=== PATIENT | female | born 1970 | race Caucasian/White ===

== ENCOUNTER 2019-09-28 13:21 | Emergency (ER) | payer SELFPAY ==
[2019-09-28 13:29] VITALS: BP 141/89; PULSE 87; RESP 18; TEMP 37; O2SAT 99; BMI 25.9
--- NOTE | 2019-09-28 13:33 | ED_ITS ---
HPI - Back Pain/Injury General: Chief Complaint: Back Pain/Injury Stated Complaint: back pain Time Seen by Provider: 09/28/19 13:27 History of Present Illness: HPI Narrative: Patient is a 49-year-old female who comes to the ED with back pain. Patient was seen at urgent care on September 16 for similar complaint. She was diagnosed with sciatica it given a dose of prednisone. Patient says now instead of just having the lumbar and sciatica pain she is feeling some more mid back pain. 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 Denies any bladder or bowel incontinence, numbness tingling/weakness down the lower extremities or any pelvic anesthesia. Associated symptoms: Deny abdominal pain, chills, dysuria, fatigue, fever(s), hematuria, nausea or vomiting Review of Systems Const: Denies: fever(s), chills or fatigue Eyes: Denies: change in vision or eye discomfort ENMT: Denies: throat pain, odynophagia, nasal discharge or nasal congestion Card: Denies: chest pain, palpitations, edema, swelling of feet/ankles, dyspnea on exertion or orthopnea Resp: Denies: dyspnea, productive cough or non-productive cough GI: Denies: abdominal pain, nausea, vomiting, diarrhea, constipation or hematochezia : Denies: flank pain, dysuria or hematuria Musc: Reports: back pain; Denies: neck pain or extremity swelling Skin/Breast: Denies: rash or new lesions Neuro: Denies: headache(s), numbness in extremities or weakness in extremities PFS ED PFSH: Social History Smoking and tobacco status: current every day smoker Physical Exam Const: COMMON NORMALS: no acute distress, patient oriented x3, healthy appearing and alert GENERAL APPEARANCE: cooperative HENMT: COMMON NORMALS: normocephalic HEAD & SCALP: normocephalic MOUTH: Normal oral and palatal mucosa present THROAT: posterior oropharynx normal and uvula midline Neck/C-Spine: COMMON NORMALS: supple GENERAL: Yes normal visual inspection Resp: COMMON NORMALS: normal respiratory effort, No retractions, No use of accessory muscles and clear to auscultation bilaterally AUSCULTATION: clear to auscultation bilaterally Cardio: COMMON NORMALS: regular rate, regular rhythm, S1 normal heart sound present, S2 normal heart sound present, No gallops present (Cardio), No clicks present (Cardio), No murmurs present (Cardio) and Peripheral pulses 2+ throughout RATE: regular rate RHYTHM: regular rhythm HEART SOUNDS: S1 normal heart sound present and S2 normal heart sound present PERIPHERAL PULSES: Peripheral pulses 2+ throughout GI: COMMON NORMALS: Normal to inspection, nondistended, normoactive bowel sounds present, Soft to palpation, non-tender and no masses PALPATION: Yes Soft to palpation : COMMON NORMALS: Yes no CVA tenderness BLADDER/KIDNEY EXAM: Yes no CVA tenderness Back/Pelvis: COMMON NORMALS: no CVA tenderness THORACIC SPINE/UPPER BACK: Yes paraspinal muscle tenderness Thoracic paraspinal muscle tenderness: bilateral Bilateral thoracic paraspinal muscle tenderness: T8 and T9 LUMBAR SPINE/LOWER BACK: Yes paraspinal muscle tenderness Extremity: COMMON NORMALS: normal to inspection and no pedal edema Neuro: COMMON NORMALS: patient oriented x3 and moves all extremities SENSORIUM/ORIENTATION: Yes alert Skin: COMMON NORMALS: no rashes or lesions noted GENERAL SKIN EXAM: no rashes or lesions noted and dry skin Course Vital Signs: Vital signs: Vital Signs Temperature 98.6 F 09/28/19 13:29 Pulse Rate 87 09/28/19 13:29 Respiratory Rate 18 09/28/19 13:29 Blood Pressure 141/89 09/28/19 13:29 Pulse Oximetry 99 09/28/19 13:29 MDM - Back Pain/Injury MDM Narrative: Medical decision making narrative: Patient is a 49-year-old female comes the ED with thoracic back pain. Physical exam shows bilateral muscle tenderness along the thoracic spine. Denies any pelvic anesthesia, bladder or bowel incontinence, numbness or weakness down extremity. Patient was given a dose of Toradol and Norflex while here in the ED. She was discharged with a prescription for Robaxin and told to follow-up with PCP in 7 to 10 days. Take [id number] Aleve or ibuprofen for pain and inflammation. Return to ED precautions given. Patient understood and agree with plan. Discharge Plan Discharge Patient Disposition: Home Clinical Impression: Thoracic back pain Qualifiers: Chronicity: acute Back pain laterality: bilateral Qualified Code(s): M54.6 - Pain in thoracic spine Condition: Stable Prescriptions: New Robaxin-750 750 mg tablet 750 mg PO Q8H Qty: 20 RF: 0 No Action prednisone 20 mg tablet 40 mg PO DAILY 5 Days Qty: 10 RF: 0 Discharge Orders: Discharge Order (Routine); Ordered 09/28/19 Ordered By: Xavi Yoder Referrals: Marcelo Hernandez MD [Primary Care Provider] - Discharge Diet: Regular Discharge Activity: Increase activity as tolerated Patient Instructions: Back Pain (ED) Activity Restrictions/Additional Instructions: Follow-up with medical provider as directed in 7-10 days. Take medications as prescribed. Robaxin is a muscle relaxer and can cause some drowsiness so take at night before bed. You can use during the day but make sure to use with caution due to the drowsiness side effect. Take [id number] ibuprofen or Aleve for pain and inflammation. Apply heat or cold pack on back to help with symptoms. Stretch out back daily and massage sore muscles. Return to the ER or your medical provider if condition worsens. Please read and understand discharge instructions. If any questions, please ask. 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
[2019-09-28 13:44] VITALS: BP 141/89; PULSE 77; RESP 16; O2SAT 97
[2019-09-28] MEDS: orphenadrine 30 mg/mL Inj 2 mL 60 MG IM (13:56)
[2019-09-28] MEDS: ketorolac 60 mg/2 mL INJ IM (13:56)
== END 2019-09-28 14:03 | disposition home or self-care (01) ==
PROVIDERS: Emergency Provider Physician Assistant
DX: M54.6 Pain in thoracic spine (principal); F17.210 Nicotine dependence, cigarettes, uncomplicated
CPT/HCPCS: 12345; 96372; 99282; 99283; J1885; J2360

== ENCOUNTER → 2019-11-02 15:22 | Outpatient (BNVA) | payer OTHER, SELFPAY | DX: Z20.828 Contact with and (suspected) exposure to other viral communicable diseases (principal) | CPT/HCPCS: 87635 ==